=== PATIENT | female | born 1985 | race Caucasian/White ===

== ENCOUNTER 2016-09-25 11:20 | Emergency (ER) | payer OTHER ==
[~2016-09-25 11:20] MED LIST: APAP500T PO; COMP1PAK PO; DULO30CA PO; EXCETAB80 PO; IBUP200T45 PO; LEVOTAB10 PO; MOME50SP; MULT1TAB8 PO; OLOP1OPD OU; PERCOCET PO; PHEN-239 PO; SING10TA32 PO; SUDA30TA PO
[2016-09-25] MEDS ORDERED: predniSONE 20 MG TAB As Ordered ONE (12:12)
[2016-09-25] MEDS ORDERED: AUGMENTIN 875 MG TAB As Ordered ONE (12:12)
--- NOTE | 2016-09-25 12:20 | EDDOCDS ---
Physician Documentation [facility] Name: Cathi Loco Age: 30 yrs Sex: Female : 1985 Arrival Date: 09/25/2016 Time: 11:20 Bed TR7 Private MD: Brady Sullivan Disposition: 09/25/16 12:09 Discharged to Home/Self Care. Impression: Acute frontal sinusitis. - Condition is Stable. - Discharge Instructions: Sinus Headache. - Prescriptions for Augmentin 875- 125 mg Oral Tablet - take 1 tablet by ORAL route every 12 hours for 10 days; 20 tablet. Prednisone 20 mg Oral Tablet - take 1 tablet by ORAL route once daily for 5 days; 5 tablet. - Medication Reconciliation form. - Follow up: Brady Sullivan DO; When: Call to arrange an appointment; Reason: Wound/Symptom Recheck, Recheck today's complaints, Continuance of care. - Problem is an ongoing problem. - Symptoms are unchanged. Historical: - Allergies: Cipro PO (Unknown); Flagyl (Vomit); SULFA (SULFONAMIDES) (Hives); - Home Meds: 1. Cymbalta 30 mg Oral cpDR 1 cap once daily 2. Singulair 10 mg Oral tab 1 tab once daily 3. Motrin 800 mg Oral tab as needed 4. Topamax Oral daily 5. levocetirizine 5 mg oral tab 1 tab once daily - PMHx: Depression; Endometriosis; IBS; Migraines; Seasonal Allergies; - PSHx: ; acl reconstruction; Tubal ligation; Adenoidectomy; - Social history: Smoking status: Patient states was never smoker of tobacco. No barriers to communication noted, The patient speaks fluent Arabic. - Family history: No immediate family members are acutely ill. - : The pt / caregiver states he / she is not on anticoagulants. Home medication list is obtained from the patient. - Exposure Risk Screening:: None identified. 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 2 in. (157.48 cm) (R); Pain 7/10; 11:24 Body Mass Index 34.57 (85.73 kg, 157.48 cm) jrd MDM: 12:03 Financial registration complete. lg 12:08 Amoxicillin-Clavulanate 875 mg 1 tabs PO once ordered. mlb1 12:08 predniSONE 20 mg PO once; administer with food or milk ordered. mlb1 Administered Medications: 12:17 Drug: Amoxicillin-Clavulanate 1 tabs [amoxicillin 875 mg-potassium clavulanate 125 mg mb9 tablet (1 tabs)] Route: PO; 12:18 Drug: predniSONE 20 mg [prednisone 20 mg tablet (1 tabs)] Route: PO; mb9 Signatures: Urbano Snyder, Reg Reg lg Will Ann RN RN mlb1 Neris Meza RN RN ms18 Will Doherty RN RN mb9 MTDD
--- NOTE | 2016-09-25 12:20 | EDDOCDS ---
Nurse's Notes [facility] Name: Cathi Loco Age: 30 yrs Sex: Female : 1985 Arrival Date: 09/25/2016 Time: 11:20 Bed TR7 Private MD: Brady Sullivan Diagnosis: Acute frontal sinusitis Presentation: 09/25 11:26 Presenting complaint: Patient states: that she has been sick "for awhile now" and she ms18 thinks she has a sinus infection. This patient has no additional risk factors. Adult Sepsis Screening: The patient does not have new or worsening altered mentation. Patient's respiratory rate is less than 22. Systolic blood pressure is greater than 100. Patient has a qSOFA score of 0- Negative Sepsis Screen. Suicide/Homicide risk assessment- the patient denies having any suicidal and/or homicidal ideations and does not present with any other emotional, behavioral or mental health complaints. Status: The patient is a dependent. Transition of care: patient was not received from another setting of care. 11:26 Acuity: TAWANNA Level 4 ms18 11:26 Method Of Arrival: Walkin/Carried/Asstd ms18 Triage Assessment: 11:29 Headache History: Other not like her migraine headaches, more like a sinus headache. ms18 General: Appears in no apparent distress, comfortable, Behavior is appropriate for age, cooperative. Pain: Pain currently is 7 out of 10 on a pain scale. Pain began 2 weeks ago Also complains of no other associated symptoms. HIV screening NA for this visit Offered previously. The patient is triaged at the bedside. See Assessment in Nurses Notes section of ED record. Neurological: No deficits noted. EENT: Reports nasal discharge that is green. Respiratory: No deficits noted. Derm: Skin is pink, warm & dry. 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 Cymbalta 30 mg Oral cpDR 1 cap once daily 2. Singulair 10 mg Oral tab 1 tab once daily 3. Motrin 800 mg Oral tab as needed 4. Topamax Oral daily 5. levocetirizine 5 mg oral tab 1 tab once daily - PMHx: Depression; Endometriosis; IBS; Migraines; Seasonal Allergies; - PSHx: ; acl reconstruction; Tubal ligation; Adenoidectomy; - Social history: Smoking status: Patient states was never smoker of tobacco. No barriers to communication noted, The patient speaks fluent Amharic. - Family history: No immediate family members are acutely ill. - : The pt / caregiver states he / she is not on anticoagulants. Home medication list is obtained from the patient. - Exposure Risk Screening:: None identified. Screenin:18 Screening information is obtained from the patient. Fall risk: No risks identified. mb9 Assistance ADL's: requires no assistance with activities of daily living. Abuse/DV Screen: The patient / caregiver reports he/she is: not in a situation that causes fear, pain or injury. Nutritional screening: No deficits noted. Advance Directives: There is no active DNR order. home support is adequate. Assessment: 12:18 General: Appears in no apparent distress, Behavior is cooperative. Pain: Location: mb9 forehead Pain currently is 4 out of 10 on a pain scale. EENT: Reports nasal congestion. Respiratory: Airway is patent Respiratory effort is even, unlabored. Vital Signs: 11:24 BP 122 / 66 RA Sitting (auto/reg); Pulse 84; Resp 18; Temp 98.0(O); Pulse Ox 98% on jrd R/A; Weight 85.73 kg (R); Height 5 ft. 2 in. (157.48 cm) (R); Pain 7/10; 11:24 Body Mass Index 34.57 (85.73 kg, 157.48 cm) [facility] Vitals: 11:24 Log In Time: September 25, 2016 at 11:18. [facility] ED Course: 11:23 Patient visited by Vega Dickerson PCA. jrd 11:23 Patient moved to Waiting jrd 11:24 Brady Sullivan DO is Private Physician. jrd 11:25 Patient visited by Vega Dickerson PCA. jrd 11:25 Patient moved to Pre RCE jrd 11:27 Triage Initiated ms18 11:37 Patient moved to Triage 2 mlb1 11:51 Devonte Richardson PA-C is PHCP. cc10 11:51 Sahil Rosales MD is Attending Physician. cc10 12:01 Patient visited by Devonte Richardson PA-C. cc10 12:01 Patient visited by Devonte Richardson PA-C. cc10 12:09 Brady Sullivan DO is Referral Physician. mlb1 12:17 Patient moved to TR7 mb9 12:18 The patient / caregiver is instructed regarding the plan of care and ED course. mb9 12:18 No IV's were initiated during this patient's visit. No procedures done that require mb9 assistance. Administered Medications: 12:17 Drug: Amoxicillin-Clavulanate 1 tabs [amoxicillin 875 mg-potassium clavulanate 125 mg mb9 tablet (1 tabs)] Route: PO; 12:18 Drug: predniSONE 20 mg [prednisone 20 mg tablet (1 tabs)] Route: PO; mb9 Order Results: There are currently no results for this order. Outcome: 12:09 Discharge ordered by Provider. mlb1 12:18 Discharge Assessment: Patient awake, alert and oriented x 3. No cognitive and/or mb9 functional deficits noted. Patient verbalized understanding of disposition instructions. patient administered narcotics - no. The following High Risk Discharge criteria are identified: None. Condition: good Condition: stable Condition: improved. Discharge instructions given to patient, Instructed on discharge instructions, follow up and referral plans. medication usage, Demonstrated understanding of instructions, medications, Pt was receptive of discharge instructions/ teaching. Prescriptions given X 2. No special radiology studies were completed. Property :Personal belongings accompany Pt. 12:19 Patient left the ED. mb9 Signatures: Will Ann RN RN b1 Devonte Richardson PA-C PA-C cc10 Neris Meza RN RN ms18 Vega Dickerson, PATENT LAW SPECIALIST PATENT LAW SPECIALIST Will Torres,RN RN mb9 MTDD
--- NOTE | 2016-09-27 13:21 | EDDOCDS ---
Nurse's Notes [facility] Name: Cathi Loco Age: 30 yrs Sex: Female : 1985 Arrival Date: 09/25/2016 Time: 11:20 Bed TR7 Private MD: Brady Sullivan Diagnosis: Acute frontal sinusitis Presentation: 09/25 11:26 Presenting complaint: Patient states: that she has been sick "for awhile now" and she ms18 thinks she has a sinus infection. This patient has no additional risk factors. Adult Sepsis Screening: The patient does not have new or worsening altered mentation. Patient's respiratory rate is less than 22. Systolic blood pressure is greater than 100. Patient has a qSOFA score of 0- Negative Sepsis Screen. Suicide/Homicide risk assessment- the patient denies having any suicidal and/or homicidal ideations and does not present with any other emotional, behavioral or mental health complaints. Status: The patient is a dependent. Transition of care: patient was not received from another setting of care. 11:26 Acuity: TAWANNA Level 4 ms18 11:26 Method Of Arrival: Walkin/Carried/Asstd ms18 Triage Assessment: 11:29 Headache History: Other not like her migraine headaches, more like a sinus headache. ms18 General: Appears in no apparent distress, comfortable, Behavior is appropriate for age, cooperative. Pain: Pain currently is 7 out of 10 on a pain scale. Pain began 2 weeks ago Also complains of no other associated symptoms. HIV screening NA for this visit Offered previously. The patient is triaged at the bedside. See Assessment in Nurses Notes section of ED record. Neurological: No deficits noted. EENT: Reports nasal discharge that is green. Respiratory: No deficits noted. Derm: Skin is pink, warm & dry. 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 Cymbalta 30 mg Oral cpDR 1 cap once daily 2. Singulair 10 mg Oral tab 1 tab once daily 3. Motrin 800 mg Oral tab as needed 4. Topamax Oral daily 5. levocetirizine 5 mg oral tab 1 tab once daily - PMHx: Depression; Endometriosis; IBS; Migraines; Seasonal Allergies; - PSHx: ; acl reconstruction; Tubal ligation; Adenoidectomy; - Social history: Smoking status: Patient states was never smoker of tobacco. No barriers to communication noted, The patient speaks fluent Yoruba. - Family history: No immediate family members are acutely ill. - : The pt / caregiver states he / she is not on anticoagulants. Home medication list is obtained from the patient. - Exposure Risk Screening:: None identified. Screenin:18 Screening information is obtained from the patient. Fall risk: No risks identified. mb9 Assistance ADL's: requires no assistance with activities of daily living. Abuse/DV Screen: The patient / caregiver reports he/she is: not in a situation that causes fear, pain or injury. Nutritional screening: No deficits noted. Advance Directives: There is no active DNR order. home support is adequate. Assessment: 12:18 General: Appears in no apparent distress, Behavior is cooperative. Pain: Location: mb9 forehead Pain currently is 4 out of 10 on a pain scale. EENT: Reports nasal congestion. Respiratory: Airway is patent Respiratory effort is even, unlabored. Vital Signs: 11:24 BP 122 / 66 RA Sitting (auto/reg); Pulse 84; Resp 18; Temp 98.0(O); Pulse Ox 98% on jrd R/A; Weight 85.73 kg (R); Height 5 ft. 2 in. (157.48 cm) (R); Pain 7/10; 11:24 Body Mass Index 34.57 (85.73 kg, 157.48 cm) [facility] Vitals: 11:24 Log In Time: September 25, 2016 at 11:18. [facility] ED Course: 11:23 Patient visited by Vega Dickerson PCA. jrd 11:23 Patient moved to Waiting jrd 11:24 Brady Sullivan DO is Private Physician. jrd 11:25 Patient visited by Vega Dickerson PCA. jrd 11:25 Patient moved to Pre RCE jrd 11:27 Triage Initiated ms18 11:37 Patient moved to Triage 2 mlb1 11:51 Devonte Richardson PA-C is PHCP. cc10 11:51 Sahil Rosales MD is Attending Physician. cc10 12:01 Patient visited by Devonte Richardson PA-C. cc10 12:01 Patient visited by Devonte Richardson PA-C. cc10 12:09 Brady Sullivan DO is Referral Physician. mlb1 12:17 Patient moved to TR7 mb9 12:18 The patient / caregiver is instructed regarding the plan of care and ED course. mb9 12:18 No IV's were initiated during this patient's visit. No procedures done that require mb9 assistance. 12:28 [facility] Payment Agreement was scanned into [employer] and attached to record. 14:45 T-Sheet-- Draft Copy was scanned into [employer] and attached to record. klr Administered Medications: 12:17 Drug: Amoxicillin-Clavulanate 1 tabs [amoxicillin 875 mg-potassium clavulanate 125 mg mb9 tablet (1 tabs)] Route: PO; 12:18 Drug: predniSONE 20 mg [prednisone 20 mg tablet (1 tabs)] Route: PO; mb9 Order Results: There are currently no results for this order. Outcome: 12:09 Discharge ordered by Provider. mlb1 12:18 Discharge Assessment: Patient awake, alert and oriented x 3. No cognitive and/or mb9 functional deficits noted. Patient verbalized understanding of disposition instructions. patient administered narcotics - no. The following High Risk Discharge criteria are identified: None. Condition: good Condition: stable Condition: improved. Discharge instructions given to patient, Instructed on discharge instructions, follow up and referral plans. medication usage, Demonstrated understanding of instructions, medications, Pt was receptive of discharge instructions/ teaching. Prescriptions given X 2. No special radiology studies were completed. Property :Personal belongings accompany Pt. 12:19 Patient left the ED. mb9 Signatures: Urbano Snyder, Robert Reg Will Stoddard RN RN mlb1 Devonte Richardson PA-C PA-C cc10 Neris Meza RN RN ms18 Vega Dickerson, SCOTTY CUSTOMER CARE MANAGER Will Torres RN RN mb9 Felicia Olvera klyovany Chart Complete MTDD
--- NOTE | 2016-09-27 13:21 | EDDOCDS ---
Physician Documentation [facility] Name: Cathi Loco Age: 30 yrs Sex: Female : 1985 Arrival Date: 09/25/2016 Time: 11:20 Bed TR7 Private MD: Brady Sullivan Disposition: 09/25/16 12:09 Discharged to Home/Self Care. Impression: Acute frontal sinusitis. - Condition is Stable. - Discharge Instructions: Sinus Headache. - Prescriptions for Augmentin 875- 125 mg Oral Tablet - take 1 tablet by ORAL route every 12 hours for 10 days; 20 tablet. Prednisone 20 mg Oral Tablet - take 1 tablet by ORAL route once daily for 5 days; 5 tablet. - Medication Reconciliation form. - Follow up: Brady Sullivan DO; When: Call to arrange an appointment; Reason: Wound/Symptom Recheck, Recheck today's complaints, Continuance of care. - Problem is an ongoing problem. - Symptoms are unchanged. Historical: - Allergies: Cipro PO (Unknown); Flagyl (Vomit); SULFA (SULFONAMIDES) (Hives); - Home Meds: 1. Cymbalta 30 mg Oral cpDR 1 cap once daily 2. Singulair 10 mg Oral tab 1 tab once daily 3. Motrin 800 mg Oral tab as needed 4. Topamax Oral daily 5. levocetirizine 5 mg oral tab 1 tab once daily - PMHx: Depression; Endometriosis; IBS; Migraines; Seasonal Allergies; - PSHx: ; acl reconstruction; Tubal ligation; Adenoidectomy; - Social history: Smoking status: Patient states was never smoker of tobacco. No barriers to communication noted, The patient speaks fluent Yoruba. - Family history: No immediate family members are acutely ill. - : The pt / caregiver states he / she is not on anticoagulants. Home medication list is obtained from the patient. - Exposure Risk Screening:: None identified. 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 2 in. (157.48 cm) (R); Pain 7/10; 11:24 Body Mass Index 34.57 (85.73 kg, 157.48 cm) jrd MDM: 12:03 Financial registration complete. lg 12:08 Amoxicillin-Clavulanate 875 mg 1 tabs PO once ordered. mlb1 12:08 predniSONE 20 mg PO once; administer with food or milk ordered. mlb1 12:28 [facility] Payment Agreement was scanned into [employer] and attached to record. lg 14:45 T-Sheet-- Draft Copy was scanned into [employer] and attached to record. klr Administered Medications: 12:17 Drug: Amoxicillin-Clavulanate 1 tabs [amoxicillin 875 mg-potassium clavulanate 125 mg mb9 tablet (1 tabs)] Route: PO; 12:18 Drug: predniSONE 20 mg [prednisone 20 mg tablet (1 tabs)] Route: PO; mb9 Signatures: Urbano Snyder, Robert Reg lg Will Ann RN RN mlb1 Neris Meza RN RN ms18 Will Doherty RN RN mb9 Felicia Olvera The chart was reviewed and I authenticate all verbal orders and agree with the evaluation and treatment provided.Attachments: 12:28 [facility] Payment Agreement lg 14:45 T-Sheet-- Draft Copy klr Chart Complete MTDD
--- NOTE | 2016-09-27 13:21 | EDDOCDS ---
Physician Documentation [facility] Name: Cathi Loco Age: 30 yrs Sex: Female : 1985 Arrival Date: 09/25/2016 Time: 11:20 Bed TR7 Private MD: Brady Sullivan Disposition: 09/25/16 12:09 Discharged to Home/Self Care. Impression: Acute frontal sinusitis. - Condition is Stable. - Discharge Instructions: Sinus Headache. - Prescriptions for Augmentin 875- 125 mg Oral Tablet - take 1 tablet by ORAL route every 12 hours for 10 days; 20 tablet. Prednisone 20 mg Oral Tablet - take 1 tablet by ORAL route once daily for 5 days; 5 tablet. - Medication Reconciliation form. - Follow up: Brady Sullivan DO; When: Call to arrange an appointment; Reason: Wound/Symptom Recheck, Recheck today's complaints, Continuance of care. - Problem is an ongoing problem. - Symptoms are unchanged. Historical: - Allergies: Cipro PO (Unknown); Flagyl (Vomit); SULFA (SULFONAMIDES) (Hives); - Home Meds: 1. Cymbalta 30 mg Oral cpDR 1 cap once daily 2. Singulair 10 mg Oral tab 1 tab once daily 3. Motrin 800 mg Oral tab as needed 4. Topamax Oral daily 5. levocetirizine 5 mg oral tab 1 tab once daily - PMHx: Depression; Endometriosis; IBS; Migraines; Seasonal Allergies; - PSHx: ; acl reconstruction; Tubal ligation; Adenoidectomy; - Social history: Smoking status: Patient states was never smoker of tobacco. No barriers to communication noted, The patient speaks fluent Amharic. - Family history: No immediate family members are acutely ill. - : The pt / caregiver states he / she is not on anticoagulants. Home medication list is obtained from the patient. - Exposure Risk Screening:: None identified. 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 2 in. (157.48 cm) (R); Pain 7/10; 11:24 Body Mass Index 34.57 (85.73 kg, 157.48 cm) jrd MDM: 12:03 Financial registration complete. lg 12:08 Amoxicillin-Clavulanate 875 mg 1 tabs PO once ordered. mlb1 12:08 predniSONE 20 mg PO once; administer with food or milk ordered. mlb1 12:28 [facility] Payment Agreement was scanned into [employer] and attached to record. lg 14:45 T-Sheet-- Draft Copy was scanned into [employer] and attached to record. klr Administered Medications: 12:17 Drug: Amoxicillin-Clavulanate 1 tabs [amoxicillin 875 mg-potassium clavulanate 125 mg mb9 tablet (1 tabs)] Route: PO; 12:18 Drug: predniSONE 20 mg [prednisone 20 mg tablet (1 tabs)] Route: PO; mb9 Signatures: Urbano Snyder, Robert Reg lg Will Ann RN RN mlb1 Neris Meza RN RN ms18 Will Doherty RN RN mb9 Felicia Olvera The chart was reviewed and I authenticate all verbal orders and agree with the evaluation and treatment provided.Attachments: 12:28 [facility] Payment Agreement lg 14:45 T-Sheet-- Draft Copy klr Chart Complete MTDD
== END 2016-09-25 12:19 | disposition home or self-care (01) ==
LOC: M ED 11:20
DX: J01.10 Acute frontal sinusitis, unspecified (principal); F32.9 Major depressive disorder, single episode, unspecified; K58.9 Irritable bowel syndrome, unspecified; G43.909 Migraine, unspecified, not intractable, without status migrainosus; J30.2 Other seasonal allergic rhinitis; Z79.899 Other long term (current) drug therapy; Z88.1 Allergy status to other antibiotic agents; Z88.2 Allergy status to sulfonamides

== ENCOUNTER 2016-10-14 11:25 | Emergency (ER) | payer OTHER ==
[~2016-10-14] VITALS: Ht 157.5 cm; Wt 85.7 kg
[2016-10-14 11:25] VITALS: BP 107/73
[~2016-10-14 11:25] MED LIST changes: -MUCI600T34 PO
[2016-10-14] MEDS ORDERED: MUCI600T34 PO (11:45)
== END 2016-10-14 14:46 | disposition left against medical advice (07) ==
LOC: M ED 14:05
DX: R68.89 Other general symptoms and signs (principal); Z53.29 Procedure and treatment not carried out because of patient's decision for other reasons

== ENCOUNTER → 2016-10-14 | Outpatient (REF) | payer OTHER ==
[~2016-10-14] MED LIST changes: +MUCI600T34 PO
== END ==
LOC: M LAB REF 16:26
PROVIDERS: ATTEND Physician Assistant
DX: J10.1 Influenza due to other identified influenza virus with other respiratory manifestations (principal)

== ENCOUNTER 2017-01-04 18:27 | Emergency (ER) | payer OTHER ==
[~2017-01-04] VITALS: Ht 157.5 cm; Wt 87.1 kg
[~2017-01-04 18:27] MED LIST changes: +MUCI600T34 PO
[2017-01-04] MEDS ORDERED: NS 500 ML IV ONE (19:00)
[2017-01-04] MEDS ORDERED: PROMETHAZINE INJ 25 MG/ML VIAL (J2550) IV ONE (19:00)
--- NOTE | 2017-01-04 19:33 | REP ---
Clinical: Trauma. Technique: AP, lateral, bilateral oblique views of the left ankle. Findings: There is a nondisplaced fracture of the lateral malleolus/fibular metaphysis with overlying soft tissue swelling. No other fracture dislocation is appreciated. Impression: Nondisplaced fracture of the distal fibular metaphysis with overlying soft tissue swelling. Signed by Aman Reed MD 01/04/2017 07:25 P
--- NOTE | 2017-01-04 19:35 | REP ---
Clinical: Trauma. Technique: AP, lateral, bilateral oblique views left foot . Findings: The osseous structures and joint spaces are intact and normal. There is no evidence for acute fracture or dislocation. Surrounding soft tissues are unremarkable. No subcutaneous emphysema or radiodense foreign body. Impression: No acute fracture or dislocation of the foot. Nondisplaced fracture of the distal fibular metaphysis. Signed by Aman Reed MD 01/04/2017 07:27 P
[2017-01-04] MEDS ORDERED: fentaNYL 100 MCG/2 ML INJECTION (J3010) As Ordered ONE (20:06)
[2017-01-04] MEDS ORDERED: fentaNYL 100 MCG/2 ML INJECTION (J3010) IV ONE (20:15)
[2017-01-04] MEDS ORDERED: PERC5TAB6 PO (20:26)
[2017-01-04] MEDS ORDERED: ZOFR4TAB3 PO (20:28)
[2017-01-04] MEDS ORDERED: NORCO 5/325MG TABLET (BULK FOR ED) PO ONE (20:30)
[2017-01-04 20:46] VITALS: BP 102/61
== END 2017-01-04 20:47 | disposition home or self-care (01) ==
LOC: EDBD 18:27 → M ED 18:52
DX: S82.65XA Nondisplaced fracture of lateral malleolus of left fibula, initial encounter for closed fracture (principal); W10.8XXA Fall (on) (from) other stairs and steps, initial encounter; Y92.099 Unspecified place in other non-institutional residence as the place of occurrence of the external cause; Y93.01 Activity, walking, marching and hiking; Y99.9 Unspecified external cause status
CPT/HCPCS: 29515; 73610; 73630; 96374; 96375; 99284; J3010

== ENCOUNTER 2017-01-05 22:42 | Emergency (ER) | payer OTHER ==
[~2017-01-05] VITALS: Ht 157.5 cm; Wt 87.1 kg
[~2017-01-05 22:42] MED LIST changes: +PERC5TAB6 PO; +ZOFR4TAB3 PO
[2017-01-05 22:43] VITALS: BP 106/68
== END 2017-01-06 00:38 | disposition home or self-care (01) ==
LOC: M ED 01-06 00:05
DX: R20.0 Anesthesia of skin (principal)

== ENCOUNTER → 2017-02-17 | Outpatient (REF) | payer OTHER ==
[~2017-02-17] MED LIST changes: -APAP500T PO; +APAP500T10 PO; -MUCI600T34 PO; +MUCI600T37 PO; +PERC5TAB12 PO; -PERC5TAB6 PO; +TOPA1TAB PO; +TRINTAB3 PO
== END ==
LOC: M SFHCCLAY 11:00
PROVIDERS: ATTEND Family Medicine
DX: Z12.4 Encounter for screening for malignant neoplasm of cervix (principal); R87.610 Atypical squamous cells of undetermined significance on cytologic smear of cervix (ASC-US)

== ENCOUNTER → 2017-05-29 | Outpatient (REF) | payer OTHER ==
[2017-05-29 18:49] LABS: MEAN CORPUSCULAR HEMOGLOBIN 30.9 pg (27.0-33.0); MEAN CORPUSCULAR HGB CONC 34.4 g/dl (32.0-36.5); MEAN CORPUSCULAR VOLUME 89.9 fl (80.0-96.0); PLATELET COUNT, AUTOMATED 430 10^3/uL (150-450); RED CELL DISTRIBUTION WIDTH 12.4 % (11.5-14.5); WHITE BLOOD COUNT 8.8 10^3/uL (4.0-10.0)
[2017-05-29 19:57] LABS: LUTEINIZING HORMONE 7.5 mIU/mL
[2017-05-29 19:58] LABS: FOLLICLE STIMULATING HORMONE 3.4 mIU/mL
[2017-05-29 20:33] LABS: FREE T4 0.94 NG/DL (0.76-1.46)
== END ==
LOC: M LAB REF 17:45
PROVIDERS: ATTEND Obstetrics & Gynecology
DX: N92.1 Excessive and frequent menstruation with irregular cycle (principal)

== ENCOUNTER 2017-07-11 18:18 | Emergency (ER) | payer OTHER ==
[~2017-07-11] VITALS: Ht 157.5 cm; Wt 191.0 kg
[2017-07-11 18:20] VITALS: BP 116/80
== END 2017-07-11 18:50 | disposition left against medical advice (07) ==
LOC: M ED 18:18
DX: Z53.29 Procedure and treatment not carried out because of patient's decision for other reasons (principal)

== ENCOUNTER 2017-08-14 18:42 | Emergency (ER) | payer OTHER ==
[2017-08-14] MEDS: ACETAMINOPHEN 325 MG TAB PO (20:30)
[2017-08-14 20:43] LABS: BASO % 0.4 % (0.0-1.0); EOS % 0.4 % (0.0-3.0); HEMATOCRIT 39.7 % (36.0-47.0); HEMOGLOBIN 13.8 g/dl (12.0-16.0); IMMATURE GRANULOCYTE % 0.3 % (0-0); LYMPH # 1.2 10^3/uL (1.5-4.5); LYMPH % 10.6 % (24.0-44.0); MEAN CORPUSCULAR HEMOGLOBIN 31.2 pg (27.0-33.0); MEAN CORPUSCULAR HGB CONC 34.8 g/dl (32.0-36.5); MEAN CORPUSCULAR VOLUME 89.6 fl (80.0-96.0); MONO # 0.6 10^3/uL (0.0-0.8); MONO % 5.9 % (0.0-5.0); NEUTROPHILS % 82.4 % (36.0-66.0); PLATELET COUNT, AUTOMATED 300 10^3/uL (150-450); RED BLOOD COUNT 4.43 10^6/uL (4.00-5.40); RED CELL DISTRIBUTION WIDTH 12.2 % (11.5-14.5); WHITE BLOOD COUNT 10.9 10^3/uL (4.0-10.0)
[2017-08-14 21:05] LABS: CONTROL LINE MONO INT CTR LINE PRESENT; MONO SCRN NEGATIVE (NEGATIVE)
[2017-08-14] MEDS ORDERED: LIDOCAINE 1% MDV 20ML VIAL As Ordered (21:22)
[2017-08-14] MEDS: cefTRIAXone SOD 1 GM VIAL (J0696) IM (21:30)
== END 2017-08-14 22:08 | disposition home or self-care (01) ==
LOC: M ED 18:42
DX: H65.03 Acute serous otitis media, bilateral (principal); J02.9 Acute pharyngitis, unspecified; M54.5 Low back pain; N80.9 Endometriosis, unspecified; Z79.899 Other long term (current) drug therapy; Z79.82 Long term (current) use of aspirin; Z79.3 Long term (current) use of hormonal contraceptives; Z88.1 Allergy status to other antibiotic agents; Z88.2 Allergy status to sulfonamides; Z88.8 Allergy status to other drugs, medicaments and biological substances; Z91.048 Other nonmedicinal substance allergy status
CPT/HCPCS: J0696

== ENCOUNTER 2017-10-05 18:53 | Emergency (ER) | payer OTHER | END 2017-10-05 19:53 | disposition home or self-care (01) | LOC: M ED 18:53 | DX: K64.5 Perianal venous thrombosis (principal); F41.9 Anxiety disorder, unspecified; F33.9 Major depressive disorder, recurrent, unspecified; K58.9 Irritable bowel syndrome, unspecified; K90.41 Non-celiac gluten sensitivity; Z79.899 Other long term (current) drug therapy; Z79.82 Long term (current) use of aspirin; Z79.3 Long term (current) use of hormonal contraceptives; Z88.2 Allergy status to sulfonamides; Z88.8 Allergy status to other drugs, medicaments and biological substances; Z91.048 Other nonmedicinal substance allergy status; Z87.891 Personal history of nicotine dependence | CPT/HCPCS: 99283 ==

== ENCOUNTER 2017-10-13 19:52 | Emergency (ER) | payer OTHER ==
[2017-10-13 20:56] LABS: KETONE, URINE AUTO RFX NEGATIVE (NEGATIVE); LEUKOCYTE ESTERASE UR AUTO RFX NEGATIVE (NEGATIVE); MUCUS, URINE RFX SMALL (NEGATIVE); NITRITE, URINE AUTO RFX NEGATIVE (NEGATIVE); RBC, URINE AUTO RFX TNTC /HPF (0-3); SPECIFIC GRAVITY UR AUTO RFX 1.015 (1.002-1.035); SQUAM EPITHELIAL CELL UR AURFX 0 /HPF (0-6); WBC, URINE AUTO RFX 26 /HPF (0-3)
[2017-10-13] MEDS: NS 1,000 ML IV (23:15)
[2017-10-13] MEDS: KETOROLAC 30 MG/ML VIAL (J1885) IV (23:15)
[2017-10-13 23:58] LABS: BASO # 0.1 10^3/uL (0.0-0.2); BASO % 1.1 % (0.0-1.0); EOS # 0.1 10^3/uL (0.0-0.50); EOS % 1.2 % (0.0-3.0); HEMOGLOBIN 13.3 g/dl (12.0-16.0); IMMATURE GRANULOCYTE % 0.4 % (0-3.0); LYMPH # 2.8 10^3/uL (1.5-4.5); LYMPH % 33.3 % (24.0-44.0); MEAN CORPUSCULAR HEMOGLOBIN 30.8 pg (27.0-33.0); MEAN CORPUSCULAR HGB CONC 34.1 g/dl (32.0-36.5); MEAN CORPUSCULAR VOLUME 90.3 fl (80.0-96.0); MONO # 0.7 10^3/uL (0.0-0.8); MONO % 7.9 % (0.0-5.0); NEUTROPHILS # 4.8 10^3/uL (1.8-7.7); NEUTROPHILS % 56.1 % (36.0-66.0); PLATELET COUNT, AUTOMATED 385 10^3/uL (150-450); RED BLOOD COUNT 4.32 10^6/uL (4.00-5.40); RED CELL DISTRIBUTION WIDTH 12.7 % (11.5-14.5); WHITE BLOOD COUNT 8.5 10^3/uL (4.0-10.0)
[2017-10-14 00:17] LABS: ALBUMIN 3.9 GM/DL (3.2-5.2); ALBUMIN/GLOBULIN RATIO 1.08 (1.00-1.93); ALKALINE PHOSPHATASE 77 U/L (45-117); ALT/SGPT 14 U/L (12-78); ANION GAP 6 MEQ/L (8-16); AST/SGOT 10 U/L (7-37); BILIRUBIN,DIRECT 0.1 MG/DL (0.0-0.2); BILIRUBIN,TOTAL 0.5 MG/DL (0.2-1.0); BLOOD UREA NITROGEN 11 MG/DL (7-18); CALCIUM LEVEL 9.6 MG/DL (8.5-10.1); CARBON DIOXIDE LEVEL 29 MEQ/L (21-32); CHLORIDE LEVEL 107 MEQ/L (98-107); CREATININE FOR GFR 0.74 MG/DL (0.55-1.30); GLOMERULAR FILTRATION RATE > 60.0 (>60); GLUCOSE, FASTING 78 MG/DL (70-100); POTASSIUM SERUM 3.9 MEQ/L (3.5-5.1); SODIUM LEVEL 142 MEQ/L (136-145); TOTAL PROTEIN 7.5 GM/DL (6.4-8.2)
[2017-10-14 00:41] LABS: CONTROL LINE UCG INT CTR LINE PRESENT; URINE PREG TEST NEGATIVE (NEGATIVE)
[2017-10-14] MEDS: CIPROFLOXACIN 500 MG TAB PO (02:21)
== END 2017-10-14 02:34 | disposition home or self-care (01) ==
LOC: M ED 10-14 02:34
DX: N30.01 Acute cystitis with hematuria (principal); K58.9 Irritable bowel syndrome, unspecified; G43.909 Migraine, unspecified, not intractable, without status migrainosus; M54.9 Dorsalgia, unspecified; F32.9 Major depressive disorder, single episode, unspecified; F41.9 Anxiety disorder, unspecified; Z87.442 Personal history of urinary calculi; Z91.018 Allergy to other foods; Z88.8 Allergy status to other drugs, medicaments and biological substances; Z88.2 Allergy status to sulfonamides; Z88.1 Allergy status to other antibiotic agents; Z91.048 Other nonmedicinal substance allergy status; Z79.899 Other long term (current) drug therapy
CPT/HCPCS: J1885

== ENCOUNTER → 2017-10-23 | Outpatient (REF) | payer OTHER ==
[2017-10-23 10:18] LABS: APPEARANCE, URINE CLEAR (CLEAR); BACTERIA, URINE AUTO 1+ (NEGATIVE); BILIRUBIN, URINE AUTO NEGATIVE (NEGATIVE); BLOOD, URINE BLOOD 1+ (NEGATIVE); COLOR, URINE YELLOW (YELLOW); GLUCOSE, URINE (UA) AUTO NEGATIVE (NEGATIVE); KETONE, URINE AUTO NEGATIVE (NEGATIVE); LEUKOCYTE ESTERASE, URINE AUTO NEGATIVE (NEGATIVE); MUCUS, URINE SMALL (NEGATIVE); NITRITE, URINE AUTO NEGATIVE (NEGATIVE); PROTEIN, URINE AUTO NEGATIVE (NEGATIVE); RBC, URINE AUTO 2 /HPF (0-3); SPECIFIC GRAVITY URINE AUTO 1.018 (1.002-1.035); SQUAMOUS EPITHELIAL CELL UR AU 0 /HPF (0-6); UROBILINOGEN, URINE AUTO 0.2 mg/dL (0.0-2.0); WBC, URINE AUTO 1 /HPF (0-3)
== END ==
LOC: M SMT 10:05
DX: R31.9 Hematuria, unspecified (principal)

== ENCOUNTER → 2017-10-24 | Outpatient (REF) | payer OTHER | LOC: M SMT 16:59 | DX: R31.9 Hematuria, unspecified (principal) | CPT/HCPCS: 87086 ==

== ENCOUNTER → 2017-11-07 | Outpatient (CLI) | payer OTHER ==
[2017-11-07 08:43] LABS: BASO # 0.1 10^3/uL (0.0-0.2); BASO % 1.1 % (0.0-1.0); EOS # 0.1 10^3/uL (0.0-0.50); EOS % 1.4 % (0.0-3.0); HEMATOCRIT 42.4 % (36.0-47.0); HEMOGLOBIN 14.9 g/dl (12.0-15.5); IMMATURE GRANULOCYTE % 0.2 % (0-3.0); LYMPH # 2.4 10^3/uL (1.5-4.5); LYMPH % 37.2 % (24.0-44.0); MEAN CORPUSCULAR HEMOGLOBIN 31.2 pg (27.0-33.0); MEAN CORPUSCULAR HGB CONC 35.1 g/dl (32.0-36.5); MEAN CORPUSCULAR VOLUME 88.9 fl (80.0-96.0); MONO # 0.5 10^3/uL (0.0-0.8); MONO % 7.4 % (0.0-5.0); NEUTROPHILS # 3.3 10^3/uL (1.8-7.7); NEUTROPHILS % 52.7 % (36.0-66.0); PLATELET COUNT, AUTOMATED 410 10^3/uL (150-450); RED BLOOD COUNT 4.77 10^6/uL (4.00-5.40); RED CELL DISTRIBUTION WIDTH 12.6 % (11.5-14.5); WHITE BLOOD COUNT 6.3 10^3/uL (4.0-10.0)
[2017-11-07 09:31] LABS: ALBUMIN 3.9 GM/DL (3.2-5.2); ALBUMIN/GLOBULIN RATIO 0.95 (1.00-1.93); ALKALINE PHOSPHATASE 74 U/L (45-117); ALT/SGPT 17 U/L (12-78); ANION GAP 6 MEQ/L (8-16); AST/SGOT 12 U/L (7-37); BILIRUBIN,TOTAL 0.5 MG/DL (0.2-1.0); BLOOD UREA NITROGEN 12 MG/DL (7-18); CARBON DIOXIDE LEVEL 24 MEQ/L (21-32); CHLORIDE LEVEL 111 MEQ/L (98-107); CHOLESTEROL LEVEL 189 MG/DL (<200); CREATININE FOR GFR 0.88 MG/DL (0.55-1.30); FREE T4 1.22 NG/DL (0.76-1.46); GLOMERULAR FILTRATION RATE > 60.0 (>60); GLUCOSE, FASTING 76 MG/DL (70-100); HDL CHOLESTEROL 63 MG/DL (>40); LDL CHOLESTEROL 112.2 MG/DL (<100); NON-HDL-C 126 MG/DL; SODIUM LEVEL 141 MEQ/L (136-145); THYROID STIMULATING HORMONE 0.825 uIU/ML (0.358-3.740); TRIGLYCERIDES LEVEL 69 MG/DL (<150)
[2017-11-07 09:57] LABS: PTH INTACT 44.8 PG/ML (18.5-88.0); TOTAL 25(OH) VITAMIN D 29.6 NG/ML (30.0-100.0); VITAMIN B12 LEVEL 496 PG/ML (247-911)
[2017-11-07 09:58] LABS: FOLATE 14.6 NG/ML (>5.4)
== END ==
LOC: M LAB 08:07
DX: R53.83 Other fatigue (principal)
CPT/HCPCS: 82746

== ENCOUNTER → 2018-01-19 | Outpatient (REF) | payer OTHER ==
[2018-01-19 14:23] LABS: CHLAMYDIA DNA AMPLIFICATION NEGATIVE (NEGATIVE); GC DNA AMPLIFICATION NEGATIVE (NEGATIVE)
[2018-01-22 14:16] LABS: HPV HYBRID CAPTURE II Negative (Negative)
== END ==
LOC: M SFHCPLAZ 10:42
DX: Z12.4 Encounter for screening for malignant neoplasm of cervix (principal); Z11.3 Encounter for screening for infections with a predominantly sexual mode of transmission